=== PATIENT | male | born 1995 | race Caucasian/White ===

== ENCOUNTER 2016-08-17 22:06 | Emergency (ER) | payer OTHER ==
[~2016-08-17] VITALS: Ht 180.3 cm; Wt 63.6 kg
[2016-08-17 22:09] VITALS: BP 123/70; PULSE 100; RESP 16; O2SAT 100
[2016-08-18 00:03] LABS: BASOPHILS % (AUTO) 0.2 % (0-3); EOSINOPHILS % (AUTO) 1.5 % (0-5); MONOCYTES % (AUTO) 7.8 % (4-12); Mean Corpuscular Volume 86.4 fL (81-100); NEUTROPHILS % (AUTO) 73.4 % (40-74); Platelet Count 253 bil/L (150-400)
--- NOTE | 2016-08-18 00:04 | ED.REPORT ---
HPI-Chest Pain Under 40 Date of Service Aug 18, 2016 ED Provider: Oleksandr Zavala MD The patient is a 20 year old male who presents to the ED due to sharp left sided parasternal chest pain with inspiration for 5 hrs. The pain does not radiate. It began when he was walking. Rated at 6/10 in severity. He denies cough, fever, and SOB. He has not taken anything to help relieve symptoms. He has no significant past medical hx. Nursing Notes Stated Complaint: CHEST PAIN Chief Complaint: Chest Pain-Non Cardiac Nature Nursing Notes Reviewed: Yes Allergies: Coded Allergies: No Known Allergies (Unverified , 08/17/16) General Time Seen by MD: 00:03 Chief Complaint Chest pain Hx Obtained From: Patient Arrived By: Walk-in Sudden in Onset?: Yes Onset Occurred: 5 - 8 hours ago Symptom Duration: Since onset Location: : Chest left Radiation: : Does not radiate Severity: Current: Pain level 6 out of 10 Recent Healthcare: No recent doctor visit, No recent hospitalization Similar Sx Previous: No Past Medical History Past Medical History healthy Past Surgical History denies Smoking History Unknown if Ever Smoker Social History Other Social History: Good social support, Local resident Ambulatory Status Independent Review of Systems Constitutional: Denies: Fever Respiratory: Denies: Non-productive cough, Shortness of breath Cardiovascular: Reports: Chest pain Complete sys rev & neg: except as marked. Physical Exam Physical Exam Notes: Initial Vital Signs Vital Signs (First) Date Time Temp Pulse Resp B/P Pulse Ox O2 Delivery O2 Flow Rate FiO2 08/17/16 22:09 36.2 100 16 123/70 100 Room Air Initial VS: Reviewed Head / Eyes: Atraumatic, Normocephalic, PERRL ENT: Mucous membranes moist, Conjunctiva normal Neck: Supple, Non-tender Abdomen / GI: Soft, Non-tender Extremities: Vascular intact, No swelling, No tenderness General/Constitutional: Awake, Alert, No acute distress, Cooperative, Not toxic appearing Respiratory / Chest: Atraumatic, Breath sounds NL, Breath sounds = bilat, No respiratory distress, No crepitus no chest wall tenderness Cardiovascular: Heart rate NL, Regular rhythm, Heart sounds NL, No gallop, No murmurs, No rubs Skin: Atraumatic, Color NL, No rash Interpretation & Diagnostics Lab Results Interpretation Result Diagram: [id number]/23234908/[id number] Test 08/17/16 23:50 White Blood Count 14.3th/mm3 (3.8-10.1) Red Blood Count 4.84mil/mm3 (4.40-5.80) Hemoglobin 14.5g/dL (13.8-17.2) Hematocrit 41.8% (41.0-50.0) Mean Corpuscular Volume 86.4fL (81-100) Mean Corpuscular Hemoglobin 30.0pg (27.0-35.0) Mean Corpuscular Hemoglobin Concent 34.7% (32.0-37.0) Red Cell Distribution Width 12.7% (12.3-15.4) Platelet Count 253bil/L (150-400) Neutrophils (%) (Auto) 73.4% (40-74) Lymphocytes (%) (Auto) 16.9% (14-46) Monocytes (%) (Auto) 7.8% (4-12) Eosinophils (%) (Auto) 1.5% (0-5) Basophils (%) (Auto) 0.2% (0-3) Sodium Level 140mEq/L (134-144) Potassium Level 4.0mEq/L (3.5-5.2) Chloride Level 101mEq/L (97-108) Carbon Dioxide Level 23mmol/L (18-29) Blood Urea Nitrogen 12mg/dL (6-20) Creatinine 0.92mg/dL (0.76-1.27) Estimat Glomerular Filtration Rate 110mL/min (>59) Glucose Level 94mg/dL (60-99) Calcium Level 9.2mg/dL (8.5-10.1) Magnesium Level 2.3mg/dL (1.6-2.6) Total Bilirubin 0.3mg/dL (0.0-1.2) Aspartate Amino Transf (AST/SGOT) 18U/L (0-50) Alanine Aminotransferase (ALT/SGPT) 11U/L (0-44) Alkaline Phosphatase 98U/L (25-150) Troponin T 0.010ug/L (0.0-0.011) Total Protein 7.6g/dL (6.4-8.4) Albumin 4.8g/dL (3.4-5.0) Hold Griffin Top Tube Received (Received) ECG Interpretation Time: 11:29 Interpreted by: ED physician Normal ECG Interpretation: Normal ECG w/ rate of... (85) X-Ray Chest Interpretation Chest Xray Interpretation: IMPRESSION: no acute findings View: Portable Interpretation / Wet Read by: Wet read ED physician Re-Eval/Medical Decision Re-Evaluation/Progress : Time of Eval: 03:07 Patient Status: Mild relief Re-Evaluation/Progress Note: Pt rechecked. Pain is improved. Informed pt of normal x-ray and discharged. F/U and RTER warnings given. Pt understands and agrees with plan. Counseled Regarding: Diagnosis, Lab results, Need for follow-up, When/why to return to ED Discharge & Departure Primary Impression: Non-cardiac chest pain Disposition: Home Discharge Condition All VS Reviewed: Yes Condition: Stable Patient Instructions: Costochondritis (ED) Additional Instructions: Emergency Department evaluation included interview, examination, labs, chest x- ray, ECG. Use ibuprofen regularly for pain. 600mg 3 times a day with food. There are no dangerous causes for your symptoms today.Establish a primary care physician in [place] and follow up with them as needed. Return to the Emergency Department for any new or worsening symptoms, fever, or shortness of breath. I hope you feel better soon! Referrals: [facility] Ildefonso Attestation Portion of this note were transcribed by Ashley Sarmiento. I, Dr. Zavala, personally performed the history, physical exam, and medical decision-making: I reviewed and confirmed the accuracy for the information in the transcribed note. Signed by: ildefonso Luna, 08/18/16 0100 copies to: [facility] Oleksandr Zavala MD Aug 18, 2016 00:04 Ashley Sarmiento Aug 18, 2016 00:11
[2016-08-18 00:25] LABS: TROPONIN T 0.01 ug/L (0.0-0.011)
[2016-08-18 00:36] LABS: Magnesium 2.3 mg/dL (1.6-2.6)
[2016-08-18 02:17] VITALS: BP 110/54; PULSE 80; RESP 15; O2SAT 97
--- NOTE | 2016-08-18 08:55 | DRSVH ---
PROCEDURE: X-RAY CHEST ONE VIEW, PORTABLE ([id number]) INDICATIONS: chest pain TECHNIQUE: One view of the chest was acquired. COMPARISON: None. FINDINGS: Surgical changes and devices: None. Lungs and pleura: No pleural effusions or pneumothorax. Lungs are clear. Mediastinum: Mediastinal contours appear normal. Heart size is normal. Bones and chest wall: No suspicious bony lesions. Overlying soft tissues appear unremarkable. IMPRESSION: No acute cardiopulmonary disease. Dictated by: Leonard Gonzalez [facility] Interpreted: Osiris Salinas MD on 08/18/2016 at 8:55 Transcribed by: CHARITO on 08/18/2016 at 8:55 Approved by: Osiris Salinas MD, PhD on 08/18/2016 at 17:02
== END 2016-08-18 02:18 | disposition home or self-care (01) ==
LOC: SED 22:06
DX: R07.89 Other chest pain (principal)

== ENCOUNTER 2016-11-02 02:21 | Observation (INO) | payer OTHER ==
[~2016-11-02] VITALS: Ht 182.9 cm; Wt 73.1 kg
[2016-11-02] VITALS (8 sets, daily range): BP systolic 99–136; BP diastolic 56–82; PULSE 87–127; RESP 11–25; O2SAT 93–100
[2016-11-02] MEDS: 0.9% Sodium Chloride 1,000 ML IV ONE ×2 (01:40→02:40)
--- NOTE | 2016-11-02 02:30 | ED.REPORT ---
HPI-General Illness Date of Service Nov 02, 2016 ED Provider: Calvin De La Cruz MD Patient is a 20 year old male with a history of IV heroin use who presents to the ED via EMS due to an overdose on heroin. Per EMS, the patient was found apneic and given 2mg of Narcan prior to arrival. The patient was found on the street in [facility]. He had vomited and is shaking. The patient reports he has overdosed before. Nursing Notes Stated Complaint: OVERDOSE Chief Complaint: Substance Abuse Nursing Notes Reviewed: Yes Allergies: Coded Allergies: No Known Allergies (Unverified , 11/02/16) General Time Seen by MD: : Chief Complaint Other (drug overdose) Hx Obtained From: EMS Arrived By: Ambulance Sudden in Onset?: Yes Onset Occurred: Just prior to arrival Context of Onset: Other (heroin use) Symptom Duration: Since onset Associated with: Reports: Vomiting Recent Healthcare: No recent hospitalization, Recent doctor visit Similar Sx Previous: Yes Past Medical History Past Medical History healthy Past Surgical History denies Smoking History Unknown if Ever Smoker Social History Drug Use: IV drugs, Meth Other Social History: Local resident Ambulatory Status Independent Review of Systems Unable to Obtain ROS Patient condition Physical Exam Vital Signs Vital Signs Date Time Temp Pulse Resp B/P Pulse Ox O2 Delivery O2 Flow Rate FiO2 11/02/16 04:51 105 11 136/78 96 Nasal Cannula 2 11/02/16 03:30 102 15 119/78 100 Nasal Cannula 2 11/02/16 03:00 36.2 107 14 131/82 96 Room Air 11/02/16 02:23 36.0 127 25 99/56 100 Room Air Initial VS: Reviewed Alertness: Positive: Sedated, Sleeping but arousable Head / Eyes: Atraumatic, Normocephalic Neck: Atraumatic, Supple Respiratory / Chest: Atraumatic, No respiratory distress Skin: Atraumatic, Color NL, No rash, Warm, Dry Neurologic: Oriented X3, Speech NL, No motor deficits, No sensory deficits Psychiatric: Affect NL, Mood NL Interpretation & Diagnostics Lab Results Interpretation Result Diagram: 11/02/16 0300 11/02/16 0300 Test 11/02/16 03:00 White Blood Count 12.8th/mm3 (3.8-10.1) Red Blood Count 4.28mil/mm3 (4.40-5.80) Hemoglobin 13.4g/dL (13.8-17.2) Hematocrit 39.7% (41.0-50.0) Mean Corpuscular Volume 92.8fL (81-100) Mean Corpuscular Hemoglobin 31.3pg (27.0-35.0) Mean Corpuscular Hemoglobin Concent 33.8% (32.0-37.0) Red Cell Distribution Width 13.2% (12.3-15.4) Platelet Count 295bil/L (150-400) Neutrophils (%) (Auto) 88.3% (40-74) Lymphocytes (%) (Auto) 7.3% (14-46) Monocytes (%) (Auto) 1.6% (4-12) Eosinophils (%) (Auto) 0.4% (0-5) Basophils (%) (Auto) 0.2% (0-3) Sodium Level 138mEq/L (134-144) Potassium Level 4.2mEq/L (3.5-5.2) Chloride Level 99mEq/L (97-108) Carbon Dioxide Level 17mmol/L (18-29) Blood Urea Nitrogen 15mg/dL (6-20) Creatinine 1.24mg/dL (0.76-1.27) Estimat Glomerular Filtration Rate 78mL/min (>59) Glucose Level 411mg/dL (60-99) Calcium Level 8.5mg/dL (8.5-10.1) Magnesium Level 2.6mg/dL (1.6-2.6) Total Bilirubin 0.3mg/dL (0.0-1.2) Aspartate Amino Transf (AST/SGOT) 57U/L (0-50) Alanine Aminotransferase (ALT/SGPT) 42U/L (0-44) Alkaline Phosphatase 86U/L (25-150) Troponin T 0.010ug/L (0.0-0.011) Total Protein 6.8g/dL (6.4-8.4) Albumin 4.1g/dL (3.4-5.0) Hold Griffin Top Tube Received (Received) ECG Interpretation ECG Interpretation: sinus tachycardia, rate 107 incomplete RBBB Time: 02:42 Interpreted by: ED physician X-Ray Chest Interpretation Chest Xray Interpretation: No acute disease View: Portable, 1 view Interpretation / Wet Read by: Wet read ED physician Re-Eval/Medical Decision Med Decision/Clinical Course 20-year-old heroin addict presents after a severe overdose, with apnea and hypoxemia noted. Paramedics in the original response gave him an IV and 2 mg of Narcan with immediate tremor and improved respirations, but he was very slow to respond initially. Awoke completely on arrival here. He has been dozing and intermittently slightly hypoxemic since, but has not required additional Narcan. However, he is not cleared sufficiently to discharge at this time. He is signed out at [address] Hernandez for further observation and disposition as his overdose clears. Discharge & Departure Shift Change Sign-Out Patient Care Transferred: Yes Discussed Complaint(s): Yes Laboratory Evaluation: Lab evaluation discussed Response to Therapy: Improved Primary Impression: Heroin overdose Encounter type: initial encounter Injury intent: accidental or unintentional Qualified Code: T40.1X1A - Poisoning by heroin, accidental ( unintentional), initial encounter Discharge Condition All VS Reviewed: Yes Condition: Stable Referrals: [facility] Care Transferred to: Dr. Hernandez Care Transferred at: 06:00 Cm Attestation Portions of this note were transcribed by Archana Ordoñez. I, Dr. De La Cruz personally performed the history, physical exam and medical decision-making; I reviewed and confirmed the accuracy of the information in the transcribed note. Signed by: Cm Pickett, 11/02/16 and 0600 copies to: [facility] Calvin De La Cruz MD Nov 02, 2016 02:30 Sydney Ordoñez Nov 02, 2016 02:35
[2016-11-02 03:13] LABS: BASOPHILS % (AUTO) 0.2 % (0-3); EOSINOPHILS % (AUTO) 0.4 % (0-5); MONOCYTES % (AUTO) 1.6 % (4-12); Mean Corpuscular Hemoglobin 31.3 pg (27.0-35.0); Mean Corpuscular Volume 92.8 fL (81-100); NEUTROPHILS % (AUTO) 88.3 % (40-74); Platelet Count 295 bil/L (150-400)
[2016-11-02 03:32] LABS: TROPONIN T 0.01 ug/L (0.0-0.011)
[2016-11-02 03:43] LABS: Magnesium 2.6 mg/dL (1.6-2.6)
--- NOTE | 2016-11-02 08:57 | DRSVH ---
PROCEDURE: X-RAY CHEST ONE VIEW, PORTABLE ([id number]) INDICATIONS: od heroin, probable aspiration TECHNIQUE: One view of the chest was acquired. COMPARISON: [facility], CR, XR CHEST 1VW (PORTABLE), 08/17/2016, 23:43. FINDINGS: Surgical changes and devices: None. Lungs and pleura: No pleural effusions or pneumothorax. Lungs are clear. Mediastinum: Mediastinal contours appear normal. Heart size is normal. Bones and chest wall: No suspicious bony lesions. Overlying soft tissues appear unremarkable. IMPRESSION: No acute cardiopulmonary disease. Dictated by: Leonard Gonzalez [facility] Interpreted: Osiris Salinas MD on 11/02/2016 at 8:56 Transcribed by: CHARITO on 11/02/2016 at 8:56 Approved by: Osiris Salinas MD, PhD on 11/02/2016 at 11:26
[2016-11-02] MEDS ORDERED: Ondansetron 2 mg/mL 2 mL Inj IVPUSH PRN ×2 (09:00→18:10)
[2016-11-02] MEDS ORDERED: Alum-Mag Hydrox-Simeth 30 mL Suspension PO PRN ×2 (09:00→18:10)
--- NOTE | 2016-11-02 09:45 | NUR ---
Admit Pt admitted to [facility] room 3030 from ED, report received from Rocio Dowd RN . Pt arrived via stretcher, and was able to ambulate to the bed, and promptly fell asleep. Unable to complete admit r/t pt sedation.
--- NOTE | 2016-11-02 16:12 | NUR ---
Sedation Pt has been sleeping off and on, currently watching TV, has good appetite, 100% of meals. Pt had visitors for about an hour, pt has showered, upon assessment pt states feels better but has some numbness in buttocks at which pt feels its from the heroin. Pt resting comfortably in bed with call light within reach, bed low and locked, intentional rounding.
[2016-11-02] MEDS ORDERED: Polyethylene Glycol (PEG) 17 Gm Powder PO PRN (18:10)
--- NOTE | 2016-11-02 18:23 | PCM.HPMED ---
Subjective Date of Service Nov 02, 2016 Primary Provider: Admitting Physician: Jonnathan Christine Primary Care Physician: Amos Attending Physician: Jonnathan Christine Chief Complaint: heroin overdose History of Present Illness: 20 year old male with a history of IV heroin use and no other known significant past medical history who presents to the ED via EMS due to an overdose on heroin. Per ED report: "the patient was found apneic and given 2mg of Narcan prior to arrival. The patient was found on the street in [facility]. He had vomited and is shaking." In the ED patient was noted to be still somewhat sleepy and his oxygen was noted to desaturate to the high 80's on room air while dozing off. Patient reports injecting heroin into his vein. He report upper respiratory symptoms (including non-productive cough) for the past week but otherwise denies any fever, chills, shortness of breath, sore throat or rhinorrhea. Review of Systems: Constitutional: Negative, except as otherwise mentioned in the history above. Ophthalmologic: Negative, except as otherwise mentioned in the history above. Cardiovascular: Negative, except as otherwise mentioned in the history above. Respiratory: Negative, except as otherwise mentioned in the history above. Gastrointestinal: Negative, except as otherwise mentioned in the history above. Genitourinary: Negative, except as otherwise mentioned in the history above. Musculoskeletal: Negative, except as otherwise mentioned in the history above. Neurological: Negative, except as otherwise mentioned in the history above. Psychiatric: Negative, except as otherwise mentioned in the history above. Hematologic/Lymphatic: Negative, except as otherwise mentioned in the history above. Allergic/Immunologic: Negative, except as otherwise mentioned in the history above. Allergies Coded Allergies: No Known Allergies (Unverified , 11/02/16) Home Medications Denies any home meds PMH IV Heroin use as noted in HPI Family History Father with history of lymphoma Social History Hx Alcohol Use: Yes (occasionally) Hx Substance Use: Yes (heroin, meth) Hx Tobacco Use: Yes (less than one ppd) Exam Vital Signs Vital Sign - Last Date Time Temp Pulse Resp B/P Pulse Ox O2 Delivery O2 Flow Rate FiO2 11/02/16 14:33 36.7 87 16 102/66 96 Room Air 11/02/16 09:48 2.00 Intake and Output 11/01/16 11/01/16 11/02/16 Cumulative From/Thru 15:00 23:00 07:00 11/02/16 02:23 - 11/02/16 04:55 Intake Total 1000 ml 1000 ml Balance 1000 ml 1000 ml Intake IV Total 1000 ml 1000 ml General: Alert, Oriented X3, Cooperative, No Acute Distress Head: Normal Eyes: PERRLA, EOMI, Scleral Anicteric Nose: Mucous Membr Moist/Schwana Mouth: Mucous Membr Moist/Schwana Neck: Supple Chest & Lungs: Chest Wall Normal, Clear to auscultation & percussion Cardiovascular: Regular Rate/Rhythm Pulses: NL carotid, radial, femoral, DP, PT Abdomen: Non-tender, Non-distended, Normoactive bowel tones, Soft Extremities: No cyanosis/clubbing/edma bilat Skin: Other (no obvious rash) Neurological: Grossly Neurologically Intact, Cranial Nerves 2-12 Intact, Normal Speech Lymphatic: Other Lymph Nodes (no significant lymphadenopathy) Lab and Diagnostics Result Diagram: 11/02/16 0300 11/02/16 030 X-Rays, CTs and MRIs Date of Service: 11/02/16226 PROCEDURE: X-RAY CHEST ONE VIEW, PORTABLE ([id number]) IMPRESSION: No acute cardiopulmonary disease. Dictated by: Leonard Gonzalez RRA Interpreted: Osiris Salinas MD on 11/02/2016 at 8:56 Transcribed by: CHARITO on 11/02/2016 at 8:56 Approved by: Osiris Salinas MD, PhD on 11/02/2016 at 11:26 Assessment & Plan 20 year old male with a history of IV heroin use and no other known significant past medical history who presents to the ED via EMS due to an overdose on heroin. # Acute heroin overdose, present prior to admission - Post treatment with Narcan on the field - Continuing slowly recover and become fully alert - Continue with supportive care # Acute hypoxic respiratory failure, noted in ED, Improving - Likely due to opioid overdose and hypoventilation - Continue with O2 supplement as needed - CXR without any evidence of acute pneumonia or other finding # History of IV drug use - Supportive care - Social work consult Dispo: Likely home in Jonnathan Celaya Nov 02, 2016 18:23
--- NOTE | 2016-11-03 05:59 | NUR ---
Uneventful Night pt has been sleeping during the night with minimal interruptions for VS and toileting needs. VSS, afebrile, on RA SHOVEL OILER on sats remained >93% and no desats observed. IV SL, patent when flushed, denied discomfort at the site. using call light appropriately, cooperative with care. hourly rounding in effect.
[2016-11-03 06:09] VITALS: BP 113/73; PULSE 91; RESP 18; O2SAT 94
[2016-11-03 07:03] LABS: BASOPHILS % (AUTO) 0.2 % (0-3); EOSINOPHILS % (AUTO) 1.3 % (0-5); MONOCYTES % (AUTO) 9.7 % (4-12); Mean Corpuscular Hemoglobin 30.8 pg (27.0-35.0); Mean Corpuscular Volume 90.6 fL (81-100); NEUTROPHILS % (AUTO) 70.4 % (40-74); Platelet Count 300 bil/L (150-400)
[2016-11-03] MEDS ORDERED: Heparin 5,000 Unit/mL Inj SUBQ SCH (08:30)
[2016-11-03 10:15] VITALS: BP 124/81; PULSE 90; RESP 16; O2SAT 97
--- NOTE | 2016-11-03 10:31 | PCM.DIMED ---
Discharge Instructions Date of Service Nov 03, 2016 Dates of Hospitalization Nov 02, 2016 at 09:22 Discharge Diagnosis Discharge Diagnosis # Acute heroin overdose, present prior to admission - Post treatment with Narcan # Acute hypoxic respiratory failure, noted in ED. Resolved - Likely due to opioid overdose and hypoventilation Diet Discharge Diet: No restrictions Activity Discharge Activity: No restrictions Call your provider Call your provider for: Fever or Chills, Shortness of breath, Chest pain Patient Instructions Patient Instructions Seek immediate medical attention if any new or worsening signs or symptoms occur. Follow-up plan 1. Followup with primary care provider in 1-2 weeks Jonnathan Christine Nov 03, 2016 10:31
--- NOTE | 2016-11-03 10:48 | NUR ---
Social Work: Screening / D/C Data: Pt is a 20 y/o male admitted for heroin overdose, sedation. Pt's PCP is not listed. Pt's insurance is [employer]. EMR reviewed. Readmit score is 1, low. Pt is an IV drug user. MD ordered CD assessment. See CD assessment notes. No further d/c planning needs at this time. [facility]ER will continue to follow if needs arise. D/C orders are in. Assessment: Pt who is independent at baseline. IV drug use. Plan: Pt will d/c home via POV today. Declined CD resources. No further d/c planning needs at this time. [facility]ER will continue to follow if needs arise. HARRY Brown
--- NOTE | 2016-11-03 10:50 | NUR ---
Social Work: Chemical Dependency Assessment [employer] acknowledges CD assessment order. [employer] met with pt at bedside, role explained. [employer] offered CD assessment and resources including [facility]. Pt declines at this time. [employer] left phone number on board and encouraged pt to consider treatment. No further [employer] needs at this time. [employer] will continue to follow. HARRY Brown
--- NOTE | 2016-11-03 11:01 | NUR ---
Discharge Pt discharged at this time, VSS, no complains of increased pain or hypoxia. IV D/Cd intact. All belongings gathered and returned to pt. Pt encouraged to contact insurance for name of PCP in area who is accepting new pt for follow up. Discharge packet printed and reviewed with pt. Pt declined offer of wheelchair, steady gait observed. Pt escorted from [facility] by this RN to elevator.
--- NOTE | 2016-11-03 17:37 | PCM.DC.MED ---
Discharge Summary Date of Service Nov 03, 2016 Dates of Hospitalization Date of Hospital Admission Nov 02, 2016 at 09:22 Date of Discharge: Nov 03, 2016 Providers: Admitting Physician: Jonnathan Christine Primary Care Physician: Amos Attending Physician: Jonnathan Christine Diagnosis at Time of Discharge Diagnosis at Time of Discharge # Acute heroin overdose, present prior to admission - Post treatment with Narcan # Acute hypoxic respiratory failure, noted in ED. Resolved - Likely due to opioid overdose and hypoventilation Procedures XRay, CTs & MRIs Date of Service: 11/02/16 022 PROCEDURE: X-RAY CHEST ONE VIEW, PORTABLE ([id number]) IMPRESSION: No acute cardiopulmonary disease. Dictated by: Leonard Gonzalez RRA Interpreted: Osiris Salinas MD on 11/02/2016 at 8:56 Transcribed by: CHARITO on 11/02/2016 at 8:56 Approved by: Osiris Salinas MD, PhD on 11/02/2016 at 11:26 Brief History 20 year old male with a history of IV heroin use and no other known significant past medical history who presents to the ED via EMS due to an overdose on heroin. Per ED report: "the patient was found apneic and given 2mg of Narcan prior to arrival. The patient was found on the street in [facility]. He had vomited and is shaking." In the ED patient was noted to be still somewhat sleepy and his oxygen was noted to desaturate to the high 80's on room air while dozing off. Patient reports injecting heroin into his vein. He report upper respiratory symptoms (including non-productive cough) for the past week but otherwise denies any fever, chills, shortness of breath, sore throat or rhinorrhea. Hospital Course # Acute heroin overdose, present prior to admission - Post treatment with Narcan on the field - Fully awake and alert by day of discharge and requesting to be discharged # Acute hypoxic respiratory failure, noted in ED. Resolved - Likely due to opioid overdose and hypoventilation - O2 sat greater than 95% on room air prior to d/c # History of IV drug use - Social work consulted Exam Vital Signs (Last) Date Time Temp Pulse Resp B/P Pulse Ox O2 Delivery O2 Flow Rate FiO2 11/03/16 10:15 37.1 90 16 124/81 97 Room Air 11/02/16 09:48 2.00 Exam Lungs CTA bilaterally. Test 11/02/16 03:00 11/03/16 06:50 Magnesium Level 2.6mg/dL (1.6-2.6) Total Bilirubin 0.3mg/dL (0.0-1.2) Aspartate Amino Transf (AST/SGOT) 57U/L (0-50) Alanine Aminotransferase (ALT/SGPT) 42U/L (0-44) Alkaline Phosphatase 86U/L (25-150) Troponin T 0.010ug/L (0.0-0.011) Total Protein 6.8g/dL (6.4-8.4) Albumin 4.1g/dL (3.4-5.0) Hold Griffin Top Tube Received (Received) White Blood Count 11.2th/mm3 (3.8-10.1) Red Blood Count 4.15mil/mm3 (4.40-5.80) Hemoglobin 12.8g/dL (13.8-17.2) Hematocrit 37.6% (41.0-50.0) Mean Corpuscular Volume 90.6fL (81-100) Mean Corpuscular Hemoglobin 30.8pg (27.0-35.0) Mean Corpuscular Hemoglobin Concent 34.0% (32.0-37.0) Red Cell Distribution Width 13.3% (12.3-15.4) Platelet Count 300bil/L (150-400) Neutrophils (%) (Auto) 70.4% (40-74) Lymphocytes (%) (Auto) 18.0% (14-46) Monocytes (%) (Auto) 9.7% (4-12) Eosinophils (%) (Auto) 1.3% (0-5) Basophils (%) (Auto) 0.2% (0-3) Sodium Level 139mEq/L (134-144) Potassium Level 3.9mEq/L (3.5-5.2) Chloride Level 102mEq/L (97-108) Carbon Dioxide Level 25mmol/L (18-29) Blood Urea Nitrogen 8mg/dL (6-20) Creatinine 0.59mg/dL (0.76-1.27) Estimat Glomerular Filtration Rate 184mL/min (>59) Glucose Level 132mg/dL (60-99) Calcium Level 8.7mg/dL (8.5-10.1) Discharge Medications No Active Prescriptions or Reported Meds Followup Plan Disposition: Home Follow-up plan 1. Followup with primary care provider in 1-2 weeks Discharge Diet: No restrictions Discharge Activity: No restrictions Patient Instructions Seek immediate medical attention if any new or worsening signs or symptoms occur. Time spent 30 min Jonnathan Christine Nov 03, 2016 17:37
== END 2016-11-03 11:08 | disposition home or self-care (01) ==
LOC: SED 02:21 → UNDOADMOB 08:58 → MPC 08:58
PROVIDERS: ADMIT Internal Medicine; ATTEND Internal Medicine
DX: T40.1X1A Poisoning by heroin, accidental (unintentional), initial encounter (principal); J96.01 Acute respiratory failure with hypoxia; F15.90 Other stimulant use, unspecified, uncomplicated; F17.210 Nicotine dependence, cigarettes, uncomplicated; Z86.59 Personal history of other mental and behavioral disorders
CPT/HCPCS: 36415; 71010; 80048; 80053; 83735; 84484; 85025; 93005; 96360; 99285; G0378; J7030